=== PATIENT | female | born 1930 | race Hispanic/Latino ===

== ENCOUNTER 2016-08-22 07:23 | Day surgery (SDC) | payer MEDICARE, OTHER ==
[2016-08-22 10:01] VITALS: O2SAT 98
--- NOTE | 2016-08-22 10:59 | PROCN ---
DATE: 08/22/2016 PROCEDURE: Loop recorder implant. INDICATION: Recurrent falls. ANESTHESIA: Local. Under routine aseptic technique, patient was prepped and draped in the usual sterile fashion. A smal l incision was made in the fourth intercostal space left parasternal area. Loop recorder was inserte d without any difficulty or bleeding. Ancef 1 gram IV push was given 30 minutes prior to procedure. PARAMETERS: R-wave 0.57 mV. The patient tolerated procedure well and will be discharged with Keflex 500 mg p.o. every 6 hours for 5 days. Ana Abbott MD cc: [id number] TT: 08/22/2016 10:58:51 Confirmation # [id number] Dictation # [id number]
[2016-08-22 11:23] VITALS: BP 154/71; PULSE 69; RESP 18; TEMP 98.4
== END 2016-08-22 11:07 | disposition home or self-care (01) ==
LOC: C.SPRAD 07:23
PROVIDERS: ATTEND Internal Medicine
DX: R29.6 Repeated falls (principal)